=== PATIENT | female | born 1965 | race Caucasian/White ===

== ENCOUNTER 2019-11-16 05:05 | Inpatient (IN) | payer OTHER ==
[2019-11-14 14:20] LABS: BASOPHILS % (AUTO) 1 % (0-1); EOSINOPHILS % (AUTO) 1 % (1-7); LYMPHOCYTES % (AUTO) 33 % (22-44); MEAN CORPUSCULAR HEMOGLOBIN 29.2 pg (27.0-34.8); MEAN CORPUSCULAR HGB CONC 33.9 g/dL (32.4-35.8); MEAN PLATELET VOLUME 8.5 fL (7.4-10.4); MONOCYTES % (AUTO) 6 % (2-9); NEUTROPHILS % (AUTO) 59 % (42-75); PLATELET COUNT 352 x10^3/uL (130-400); RED BLOOD COUNT 5.32 x10^6/uL (3.82-5.3); RED CELL DISTRIBUTION WIDTH 12.9 % (9.6-15.2)
[2019-11-14 14:28] LABS: MD NO
[2019-11-14 14:30] LABS: ALANINE AMINOTRANSFERASE 19 U/L (12-78); ALBUMIN 3.8 g/dL (3.4-5.0); ANION GAP 5 mmol/L (5-15); CALCIUM 9.3 mg/dL (8.5-10.1); CHLORIDE 111 mmol/L (98-107); CREATININE 0.66 mg/dL (0.55-1.02); INTERNATIONAL NORMALIZED RATIO 1.1 (0.93-1.1); PROTHROMBIN TIME 11.3 Seconds (9.6-11.5)
[2019-11-14 14:32] LABS: ALKALINE PHOSPHATASE 123 U/L (45-117); BILIRUBIN,TOTAL 0.6 mg/dL (0.2-1.0); TOTAL PROTEIN 7.6 g/dL (6.4-8.2)
[2019-11-14 14:41] LABS: MICROSCOPIC INDICATED
[~2019-11-16] VITALS: Ht 162.6 cm; Wt 82.0 kg
[2019-11-16] MEDS ORDERED: LACTATED RINGERS 1,000 ML IV SCH (06:00)
[2019-11-16] MEDS ORDERED: CHLORHEXIDINE 15 ML UDC ONE (06:00)
[2019-11-16] MEDS ORDERED: CHLORHEXIDINE 15 ML UDC MM ONE (06:00)
[2019-11-16 06:37] VITALS: BP 155/98
[2019-11-16] MEDS ORDERED: [UNRECOGNIZED DRUG - REMARK] (06:45)
[2019-11-16] MEDS ORDERED: BUPIVACAINE/PF 0.25% ONE (06:49)
[2019-11-16] MEDS ORDERED: FUROSEMIDE 20 MG/2 ML ONE (06:50)
[2019-11-16] MEDS ORDERED: INDIGO CARMINE 0.8%, 5ML ONE (06:50)
[2019-11-16] MEDS ORDERED: MANNITOL PMX 20% 500 ML ONE (06:50)
[2019-11-16] MEDS ORDERED: EPINEPHRINE 1 MG/ML, 1ML ONE (06:50)
[2019-11-16] MEDS ORDERED: MIDAZOLAM 1 MG/ML, 2ML ONE (07:25)
[2019-11-16] MEDS ORDERED: FENTANYL PF 250 MCG/5ML ONE (07:25)
[2019-11-16] MEDS ORDERED: PHENYLEPHRINE 10 MG/ML ONE (07:34)
[2019-11-16] MEDS ORDERED: CEFAZOLIN 1,000 MG ONE (07:34)
[2019-11-16] MEDS ORDERED: SUGAMMADEX 200 MG/2 ML IVPush ONE (07:34)
[2019-11-16] MEDS ORDERED: ONDANSETRON 2MG/ML, 2ML ONE (07:34)
[2019-11-16] MEDS ORDERED: ROCURONIUM 10 MG/ML,10ML ONE (07:34)
[2019-11-16] MEDS ORDERED: PROPOFOL 10 MG/ML, 20ML ONE (07:34)
[2019-11-16] MEDS ORDERED: DEXAMETHASONE 4 MG/ML, 1ML ONE (07:34)
[2019-11-16] MEDS ORDERED: BUPIVACAINE/PF-EPI 0.25% 1:200K INFIL ONE (08:43)
[2019-11-16] MEDS ORDERED: FENTANYL PF 100 MCG/2ML ONE ×2 (11:24→12:05)
[2019-11-16] MEDS ORDERED: OXYcodone 5 MG/5 ML ORAL.SOL UDC ONE (12:05)
[2019-11-16] MEDS ORDERED: ONDANSETRON 2MG/ML, 2ML IVPush PRN (12:30)
[2019-11-16] MEDS ORDERED: FENTANYL PF 100 MCG/2ML IV PRN (12:30)
[2019-11-16] MEDS ORDERED: DIPHENHYDRAMINE 50 MG/ML, 1ML IVPush PRN (12:30)
[2019-11-16] MEDS ORDERED: ACETAMINOPHEN 325 MG TABLET PO PRN (12:30)
[2019-11-16] MEDS ORDERED: hydrALAzine 20 MG/ML, 1ML IV PRN (12:30)
[2019-11-16] MEDS ORDERED: HYDROmorphone 1 MG/ML, 1ML INJ IVPush PRN (12:30)
[2019-11-16] MEDS ORDERED: KETOROLAC 30 MG/1 ML IVPush PRN (12:30)
[2019-11-16] MEDS ORDERED: LABETALOL 5MG/ML, 20ML IV PRN (12:30)
[2019-11-16] MEDS ORDERED: DIAZEPAM 5 MG/ML, 2ML IVPush PRN (12:30)
[2019-11-16] MEDS ORDERED: MEPERIDINE/PF 25MG/0.5ML IVPush PRN (12:30)
[2019-11-16] MEDS ORDERED: OXYcodone 5 MG/5 ML ORAL.SOL UDC PO PRN (12:30)
[2019-11-16] MEDS ORDERED: PROMETHAZINE 25 MG/ML, 1ML ONE (12:34)
[2019-11-16] MEDS: PROMETHAZINE 25 MG/ML, 1ML IVPush PRN (12:35)
[2019-11-16] MEDS ORDERED: HYDROmorphone 1 MG/ML, 1ML INJ ONE (12:43)
[2019-11-16] MEDS ORDERED: KETOROLAC 30 MG/1 ML ONE (12:44)
[2019-11-16] MEDS ORDERED: morphine SULFATE 10 MG/ML, 1ML IV PRN (15:30)
[2019-11-16] MEDS ORDERED: ONDANSETRON 2MG/ML, 2ML IV PRN (15:30)
[2019-11-16] MEDS ORDERED: TEMAZEPAM 15 MG CAPSULE PO PRN (15:30)
[2019-11-16] MEDS: CEFAZOLIN PMX 1GM/50ML 50 ML IVPB SCH (16:31)
[2019-11-16] MEDS: SODIUM CHLORIDE 0.9% 1,000 ML IV SCH (16:31)
[2019-11-16] MEDS: HYDROcodone/APAP 5/325 TABLET PO PRN ×2 (16:32→21:41)
[2019-11-16 19:00] VITALS: BP 91/66
[2019-11-17] MEDS: CEFAZOLIN PMX 1GM/50ML 50 ML IVPB SCH (00:18)
[2019-11-17 00:22] VITALS: BP 104/61
[2019-11-17] MEDS: SODIUM CHLORIDE 0.9% 1,000 ML IV SCH ×2 (02:25→11:30)
[2019-11-17 04:19] VITALS: BP 101/64
[2019-11-17] MEDS: HYDROcodone/APAP 5/325 TABLET PO PRN ×2 (04:30→08:41)
[2019-11-17 05:44] LABS: ANION GAP 7 mmol/L (5-15); CALCIUM 8.3 mg/dL (8.5-10.1); CHLORIDE 109 mmol/L (98-107)
[2019-11-17 06:53] VITALS: BP 109/66
== END 2019-11-17 12:20 | disposition home or self-care (01) | DRG 661 ==
LOC: OUT 05:05 → 4NE 14:39 → OUT 14:42 → DCLOUNGE 11-17 12:04
PROVIDERS: ADMIT Urology; ATTEND Urology
PROC: 8E0W3CZ Robotic Assisted Procedure of Trunk Region, Percutaneous Approach (ICD-10-PCS; 2019-11-16)
PROC: BT41ZZZ Ultrasonography of Right Kidney (ICD-10-PCS; 2019-11-16)
PROC: 0TB04ZZ Excision of Right Kidney, Percutaneous Endoscopic Approach (ICD-10-PCS; principal; 2019-11-16 07:30)
DX: N28.89 Other specified disorders of kidney and ureter (principal); Z20.828 Contact with and (suspected) exposure to other viral communicable diseases
CPT/HCPCS: 36415; 80048; 80053; 81001; 85014; 85018; 85025; 85610; 85730; 86850; 86900; 87086; 87635; 88307; 93005; C1729; G0378; J0171; J0690; J1100; J1885; J2250; J2405; J2550; J2704; J3010; J3490; C1760; J1940; J2370; J7030; J7120